=== PATIENT | male | born 1955 | race Caucasian/White ===

== ENCOUNTER 2025-01-23 20:32 | Inpatient (IN) | payer OTHER ==
[~2025-01-23] VITALS: Ht 185.4 cm; Wt 133.0 kg
[2025-01-23] MEDS ORDERED: Ondansetron HCl 2 MG / ML 2ML Vial IV ONE ×2 (21:00→22:25)
[2025-01-23 21:25] LABS: BASOPHILS ABSOLUTE AUTO 0.02 K/mm3 (0.00-0.23); BASOPHILS PERCENT AUTO 0 % (0-2); EOSINOPHILS ABSOLUTE AUTO 0.12 K/mm3 (0.00-0.68); EOSINOPHILS PERCENT AUTO 2 % (0-6); Hematocrit 36.2 % (37.0-53.0); Hemoglobin 11.9 g/dL (13.5-17.5); IMMATURE GRAN ABSOLUTE AUTO 0.05 K/mm3 (0.00-0.10); IMMATURE GRAN PERCENT AUTO 1 % (0-1); LYMPHOCYTES ABSOLUTE AUTO 0.70 K/mm3 (0.84-5.20); LYMPHOCYTES PERCENT AUTO 12 % (21-46); MONOCYTES ABSOLUTE AUTO 0.20 K/mm3 (0.16-1.47); MONOCYTES PERCENT AUTO 3 % (4-13); Mean Corpuscular HGB Conc 32.9 g/dL (31.5-36.5); Mean Corpuscular Volume 96 fL (80-100); NEUTROPHILS ABSOLUTE AUTO 4.96 K/mm3 (1.96-9.15); NEUTROPHILS PERCENT AUTO 82 % (41-73); NRBC ABSOLUTE 0.00 K/mm3 (0.00-0.02); NRBC Auto 0.0 /100 WBC (0.0-0.2); Platelet Count 143 K/mm3 (150-400); RDW Coefficient Variation 14.8 % (11.7-14.2); RDW Standard Deviation 51.9 fL (35.1-46.3)
[2025-01-23 21:45] LABS: Alanine Aminotransfer (ALT/SGP 21.0 U/L (12-78); Albumin, Blood 3.3 g/dL (3.4-5.0); Albumin/Globulin Ratio 0.8 (0.8-1.8); Anion Gap 9.0 mmol/L (3-11); Aspartate Aminotrans (AST/SGOT 21.0 U/L (12-37); Bilirubin, Total 0.2 mg/dL (0.1-1.0); Blood Urea Nitrogen 11.0 mg/dL (8-24); CO2, Blood 28.0 mmol/L (21-32); Calcium, Blood 8.8 mg/dL (8.5-10.1); Chloride, Blood 102.0 mmol/L (98-108); Creatinine, Blood 0.72 mg/dL (0.60-1.20); Globulin, Blood 4.3 g/dL (2.2-4.0); Glucose, Blood 174.0 mg/dL (70-99); Potassium, Blood 3.3 mmol/L (3.5-5.5); Sodium, Blood 136.0 mmol/L (136-145); Total Protein, Blood 7.6 g/dL (6.4-8.2)
[2025-01-23] MEDS ORDERED: Ampicillin Sod/Sulbactam Sod 3 GM in NS 100 ML IV ONE (22:25)
[2025-01-23] MEDS ORDERED: NS 1,000 ML IV SCH ×2 (22:25→22:50)
[2025-01-23] MEDS ORDERED: HYDROmorphone HCl/Pf 1MG SYR IV ONE (22:25)
[2025-01-23] MEDS ORDERED: FentaNYL Citrate 50 MCG/ML 2 ML Injection IV PRN (22:45)
[2025-01-23] MEDS ORDERED: Ondansetron HCl 2 MG / ML 2ML Vial IV PRN (22:50)
[2025-01-23] MEDS ORDERED: FLU VACC TS2025(65UP)/MF59C/PF 45 MCG/0.5 ML SYRINGE IM SCH (22:50)
[2025-01-23 22:57] LABS: Magnesium, Blood 1.6 mg/dL (1.6-2.4); Phosphorus, Blood 2.9 mg/dL (2.5-4.9)
[2025-01-23 23:07] LABS: Prothrombin Time Results 10.9 Sec (9.7-11.5)
[2025-01-24] VITALS (16 sets, daily range): BP systolic 102–193; BP diastolic 55–97
[2025-01-24] MEDS ORDERED: OMEP20ER PO (00:08)
[2025-01-24] MEDS ORDERED: Aspir 8181 MG PO (00:10)
[2025-01-24] MEDS ORDERED: B-12500 MC2 PO (00:10)
[2025-01-24] MEDS ORDERED: HYDROCHLOROTH12.5 MG PO (00:11)
[2025-01-24] MEDS ORDERED: LISI20 PO (00:12)
[2025-01-24] MEDS ORDERED: PIOG30 PO (00:13)
[2025-01-24] MEDS ORDERED: ZOCOR20 MG PO (00:14)
[2025-01-24] MEDS ORDERED: EUTHYROX125 MCG PO (00:14)
[2025-01-24] MEDS ORDERED: AMLO5 PO (00:15)
[2025-01-24] MEDS ORDERED: IBUP800 PO (00:16)
[2025-01-24] MEDS ORDERED: METF500C PO (00:16)
[2025-01-24] MEDS ORDERED: NORT25 PO (00:17)
[2025-01-24] MEDS ORDERED: METO100ER PO (00:17)
[2025-01-24] MEDS ORDERED: K-TAB ER20 ME1 PO (00:22)
[2025-01-24] MEDS ORDERED: Norco 5-325 Ta1 EACH PO (00:23)
[2025-01-24] MEDS ORDERED: OZEMPIC2 MG/0.75 SC (00:24)
[2025-01-24] MEDS ORDERED: INSULIN AS100 UNIT/8 SC (00:25)
[2025-01-24] MEDS ORDERED: INSULANI SC (00:26)
[2025-01-24] MEDS ORDERED: HydrALAZINE HCl 20 MG / ML 1ML Vial IV PRN (00:45)
[2025-01-24] MEDS ORDERED: Metoclopramide HCl 5MG / ML 2ML Vial IV PRN (00:45)
[2025-01-24] MEDS ORDERED: FentaNYL Citrate 50 MCG/ML 2 ML Injection IV PRN ×4 (02:40→13:35)
[2025-01-24] MEDS ORDERED: HYDROmorphone HCl/Pf 1MG SYR IV PRN ×3 (03:55→13:40)
[2025-01-24 04:32] LABS: BASOPHILS ABSOLUTE AUTO 0.01 K/mm3 (0.00-0.23); BASOPHILS PERCENT AUTO 0 % (0-2); EOSINOPHILS ABSOLUTE AUTO 0.01 K/mm3 (0.00-0.68); EOSINOPHILS PERCENT AUTO 0 % (0-6); Hematocrit 35.8 % (37.0-53.0); Hemoglobin 11.4 g/dL (13.5-17.5); IMMATURE GRAN ABSOLUTE AUTO 0.06 K/mm3 (0.00-0.10); IMMATURE GRAN PERCENT AUTO 1 % (0-1); LYMPHOCYTES ABSOLUTE AUTO 0.51 K/mm3 (0.84-5.20); LYMPHOCYTES PERCENT AUTO 7 % (21-46); MONOCYTES ABSOLUTE AUTO 0.20 K/mm3 (0.16-1.47); MONOCYTES PERCENT AUTO 3 % (4-13); Mean Corpuscular HGB Conc 31.8 g/dL (31.5-36.5); Mean Corpuscular Volume 97 fL (80-100); NEUTROPHILS ABSOLUTE AUTO 6.29 K/mm3 (1.96-9.15); NEUTROPHILS PERCENT AUTO 89 % (41-73); NRBC ABSOLUTE 0.00 K/mm3 (0.00-0.02); NRBC Auto 0.0 /100 WBC (0.0-0.2); Platelet Count 146 K/mm3 (150-400); RDW Coefficient Variation 14.7 % (11.7-14.2); RDW Standard Deviation 52.9 fL (35.1-46.3)
[2025-01-24 04:56] LABS: Alanine Aminotransfer (ALT/SGP 20.0 U/L (12-78); Albumin, Blood 3.2 g/dL (3.4-5.0); Albumin/Globulin Ratio 0.8 (0.8-1.8); Anion Gap 8.0 mmol/L (3-11); Aspartate Aminotrans (AST/SGOT 15.0 U/L (12-37); Bilirubin, Total 0.4 mg/dL (0.1-1.0); Blood Urea Nitrogen 8.0 mg/dL (8-24); CO2, Blood 30.0 mmol/L (21-32); Calcium, Blood 8.1 mg/dL (8.5-10.1); Chloride, Blood 100.0 mmol/L (98-108); Creatinine, Blood 0.62 mg/dL (0.60-1.20); Globulin, Blood 4.1 g/dL (2.2-4.0); Glucose, Blood 166.0 mg/dL (70-99); Potassium, Blood 3.5 mmol/L (3.5-5.5); Sodium, Blood 134.0 mmol/L (136-145); Total Protein, Blood 7.3 g/dL (6.4-8.2)
[2025-01-24] MEDS ORDERED: Ampicillin Sod/Sulbactam Sod 3 GM in NS 100 ML IV SCH (06:00)
--- NOTE | 2025-01-24 06:40 | NUR ---
NOC SUMMARY- PT ARRIVED TO ROOM UNCOMFORTABLE. PT PAIN HAS BEEN MANAGED WELL WITH SOME MED CHANGES. PTNPO AND VOIDING. PT REPORTS NAUSEA AND HAS VALENTE TX PER MAY. NO TELE EVENTS REPORTED. PT SPO2 >90% ON O2 @ 2LPM. CALL LIGHT IN REACH.
[2025-01-24] MEDS ORDERED: Insulin Human Lispro 100 Units/ML 3ML Syringe SC SCH (07:30)
[2025-01-24] MEDS ORDERED: Bupivacaine 0.5% HCl 5 MG/ML 30MLVIAL ONE (12:26)
--- NOTE | 2025-01-24 12:27 | NUR ---
[facility]
--- NOTE | 2025-01-24 13:01 | NUR ---
History, Chart, Medications and Allergies reviewed before start of procedure. Patient confirms NPO status and agrees with scheduled surgery. Pre-Op teaching done. Pt verbalizes understanding.
[2025-01-24] MEDS ORDERED: FentaNYL Citrate 50 MCG/ML 2 ML Injection ONE (13:03)
[2025-01-24] MEDS ORDERED: Metoclopramide HCl 5MG / ML 2ML Vial ONE (13:23)
[2025-01-24] MEDS ORDERED: Phenylephrine HCl 100 MCG/ML-NS 10MLSYR (1MG/10ML) ONE (13:24)
[2025-01-24] MEDS ORDERED: Ketorolac Tromethamine 30mg Vial ONE (13:24)
[2025-01-24] MEDS ORDERED: Rocuronium Bromide 10 MG/ML 5ML Injection IV ONE ×2 (13:24→13:50)
[2025-01-24] MEDS ORDERED: Ondansetron HCl 2 MG / ML 2ML Vial IV PRN (13:35)
[2025-01-24] MEDS ORDERED: Albuterol 2.5 MG/3 ML VIAL INH PRN (13:35)
[2025-01-24] MEDS ORDERED: Sugammadex Sodium 200 MG/2ML SDV (100 MG/ML) ONE (14:31)
--- NOTE | 2025-01-24 15:43 | NUR ---
ARRIVAL TO UNIT PT BACK TO ROOM FROM SURGERY AT APPROX 1530. PT IS A/OX4, CURRENTLY ON 3L VIA NC. PROVIDED PT WITH WATER AT THIS TIME. CALL LIGHT IN REACH, FAMILY IN ROOM.
--- NOTE | 2025-01-24 17:03 | NUR ---
SHIFT SUMMARY S/P LAP JOSE F PT IS A/OX4. RESTING IN BED. PT IS TOLERATING CLEAR LIQUIDS, DENIES N/V, AND DENIES PAIN AT THIS TIME. PT IS SBA IN ROOM. 4 LAP SITES C/D/I. AWAITING FIRST POST OP VOID. CALL LIGHT IN REACH BED IN LOWEST POSITION.
--- NOTE | 2025-01-25 04:58 | NUR ---
SHIFT SUMMARY: PT AOX4, IND/ SBA IN THE ROOM, NEEDS SOME ASSISTANCE MANAGING LINES. TOLERATING DIET AND MEDICATIONS WELL. DESATTED INTO THE 80'S WHILE SLEEPING, PLACED ON 2L NC. HAS BEEN SATTING WELL SINCE. NO ACUTE OVERNIGHT EVENTS. LAP SITES ARE CDI. NO COMPLAINTS OF PAIN PER PT. DENIES SOB OR CP. PT IN BED SLEEPING, BED IN LOWEST POSITION, CALL LIGHT IN REACH. CONTINUING CARE.
[2025-01-25 05:10] VITALS: BP 118/92
[2025-01-25 07:02] VITALS: BP 120/60
--- NOTE | 2025-01-25 08:21 | NUR ---
THIS [employer] WORKER OFFERED TO WALK WITH PATIENT IN HALLWAY.THIS [employer] UTILITY WORKER OFFERED TO SET UP CHAIR FOR PATIENT,PATIENT DECLINED.
[2025-01-25 09:53] LABS: Hematocrit 30.5 % (37.0-53.0); Hemoglobin 10.0 g/dL (13.5-17.5); Mean Corpuscular HGB Conc 32.8 g/dL (31.5-36.5); Mean Corpuscular Volume 97 fL (80-100); NRBC ABSOLUTE 0.00 K/mm3 (0.00-0.02); NRBC Auto 0.0 /100 WBC (0.0-0.2); Platelet Count 149 K/mm3 (150-400); RDW Coefficient Variation 15.4 % (11.7-14.2); RDW Standard Deviation 55.0 fL (35.1-46.3)
[2025-01-25 10:02] LABS: Anion Gap 9.0 mmol/L (3-11); Blood Urea Nitrogen 24.0 mg/dL (8-24); CO2, Blood 29.0 mmol/L (21-32); Calcium, Blood 7.6 mg/dL (8.5-10.1); Chloride, Blood 97.0 mmol/L (98-108); Creatinine, Blood 1.4 mg/dL (0.60-1.20); Glucose, Blood 229.0 mg/dL (70-99); Potassium, Blood 3.6 mmol/L (3.5-5.5); Sodium, Blood 131.0 mmol/L (136-145)
[2025-01-25 11:07] VITALS: BP 124/63
--- NOTE | 2025-01-25 12:36 | NUR ---
Pt. is awake in bed when he welcomes my visit. Spouse is at bedside. Pt. is pleasant. Facilitated a life review and listened with empathy and interest. Pt. verbalized that he expects to be discharged home in a day or so. COnsidered matters of anam and belief. Prayed with the Pt. Pt. verbalized gratitude for the spiritual care visit.
[2025-01-25] MEDS ORDERED: AMOCLA875 PO (14:10)
--- NOTE | 2025-01-25 14:48 | NUR ---
DISCHARGE NOTE PT EDCUATED ON DISCHARGE PACKET AND INSTRUCTIONS FOR AFTER CARE WITH PIERRE KOHLER. WENT OVER NEW PRESCRIPTION AND STOPPED HOME MEDS WITH PT AND AT BEDSIDE. IV REMOVED. BELONGINGS GATHERED AND RETURNED TO PT. PRESCRIPTION FAXED TO [facility]. PRN TYENOL GIVEN FOR MOD BACK PAIN WITH REPORTED RELIEF PRIOR TO DC. PATIENT ESCORTED OFF UNIT VIA WHEELCHAIR BY THIS RN AT 1435. PULLED CAR OUT FRONT. NO NEW QUESTIONS OR CONCERNS AT DC.
== END 2025-01-25 14:50 | disposition home or self-care (01) | DRG 417 ==
LOC: ER 20:32 → SURS 20:33
PROVIDERS: Internal Medicine; Physician Assistant; Surgery; ADMIT Internal Medicine
PROC: 3E03329 Introduction of Other Anti-infective into Peripheral Vein, Percutaneous Approach (ICD-10-PCS; 2025-01-23)
PROC: 3E02340 Introduction of Influenza Vaccine into Muscle, Percutaneous Approach (ICD-10-PCS; 2025-01-23)
PROC: 8E0W4CZ Robotic Assisted Procedure of Trunk Region, Percutaneous Endoscopic Approach (ICD-10-PCS; 2025-01-24)
PROC: 0FT44ZZ Resection of Gallbladder, Percutaneous Endoscopic Approach (ICD-10-PCS; principal; 2025-01-24 13:00)
DX: K80.00 Calculus of gallbladder with acute cholecystitis without obstruction (principal); K65.1 Peritoneal abscess; J96.11 Chronic respiratory failure with hypoxia; T81.43XA Infection following a procedure, organ and space surgical site, initial encounter; N17.9 Acute kidney failure, unspecified; I10 Essential (primary) hypertension; E11.9 Type 2 diabetes mellitus without complications; E03.9 Hypothyroidism, unspecified; K21.9 Gastro-esophageal reflux disease without esophagitis; K75.81 Nonalcoholic steatohepatitis (NASH); E87.6 Hypokalemia; K66.0 Peritoneal adhesions (postprocedural) (postinfection); D64.9 Anemia, unspecified; Z23 Encounter for immunization; Z79.899 Other long term (current) drug therapy; Z79.82 Long term (current) use of aspirin; Z79.891 Long term (current) use of opiate analgesic; Z79.4 Long term (current) use of insulin; Z79.84 Long term (current) use of oral hypoglycemic drugs; Z87.19 Personal history of other diseases of the digestive system; Z79.890 Hormone replacement therapy
CPT/HCPCS: 36415; 74177; 76705; 80048; 80053; 82947; 83690; 83735; 83880; 84100; 84484; 85025; 85027; 85610; 88304; 93005; 93010; 96361; 96365; 96366; 96375; 96376; 99285-25; A9270; G0378; J0295; J0360; J1171; J1885; J2371; J2405; J2704; J2765; J3010; J3480; J7030; J7050; J7120; Q9967